=== PATIENT | male | born 1945 | race Caucasian/White ===

== ENCOUNTER 2021-04-18 17:05 | Inpatient (IN) | payer OTHER ==
--- NOTE | 2021-04-29 05:55 | NUR ---
Pt admitted to rm 522A at 2350. Oriented to self. Confused. Admission HX and assessment comnpleted as much as nursing is able to. Pt requires lots of prompting in carrying out tasks. Pt is a direct admit from [facility]. Pt usually lives at home with . Per admission intake report, pt was getting increasing confused, agitated, aggressive with family. Pt unsteady. Fall precautions in place. Pt unable to sign self in, due to inablity to comprehend consent forms. Pt does not have an active DPOA on file. Nursing called Roberta Zabala [phone] twice and was unable to get a hold of . Nursing called Selwyn Mccarty ([phone]) who's listed as his son janie on intake form. Selwyn who's also not legal DPOA voiced that the family was giving consent for treatment and that family was currently pursuing emergency gaurdianship. Consent forms in chart and not signed at this time since son janie does not have legal authority to do so. Pt has urine retention problems and has an order to bladder scan q6 and straight cath if >300ml. This am, bladder scan showed >727ml. After several unsuscessful attempts to void, Pt straight cathed and had 1100ml out. Pt tolerated well. No agitation or aggression noted. Urine was yellow concentrated. Fall precautions remains in place. Nursing to continue to monitor.
[2021-04-29 09:52] VITALS: BP 131/54
--- NOTE | 2021-04-29 10:33 | NUR ---
COMPLIENT WITH TAKING AM MEDICATIONS-ATE BREAKFAST INDEPENDENTLY-REQUIRES FREQUENT QUEING AND PROMPTS TO TOILET,FIND ROOM,ETC. BRIGHT AFFECT,SMILING AND COOPERATIVE WITH REQUESTS AND REDIRECTION. ORIENTED TO NAME ONLY. GAIT IS STEADY WITHOUT ASSISTIVE DEVICES.
--- NOTE | 2021-04-29 18:19 | NUR ---
BLADDER SCAN COMPLETED AT 1200 AND SHOWED LESS THAN 50 CC IN BLADDER. PT HAS BEEN WALKED INTO BATHROOM MULTIPLE TIMES AND EITHER REFUSES TO PULL PANTS DOWN AND SIT ON TOILET OR IS UNABLE TO GO. BLADDER SCAN COMPLETED AT 1800 SHOWS 450 CC'S STRAIGHT CATH COMPLETED PER ORDER -APPROX 400 CC FOUL SMELLING KAMI COLORED URINE DRAINED-PT TOLERATED WELL -CURRENTLY RESTING IN BED
[2021-04-29 18:45] LABS: URINE BILIRUBIN NEGATIVE (Negative); URINE BLOOD NEGATIVE (Negative); URINE CLARITY CLEAR; URINE COLOR YELLOW; URINE GLUCOSE-RANDOM* NEGATIVE (Negative); URINE KETONES TRACE (Negative); URINE LEUKOCYTES-REFLEX TRACE (Negative); URINE NITRITE-REFLEX NEGATIVE (Negative); URINE PROTEIN (DIPSTICK) NEGATIVE (Negative); URINE SPECIFIC GRAVITY 1.015 (1.005-1.035)
[2021-04-29 19:19] VITALS: BP 118/47
--- NOTE | 2021-04-30 02:23 | NUR ---
Assumed pt's care beginning of this pm shift. Pt oriented to self. COnfused. Wandering the hallway and into other peer's rooms. Pt was cooperative with care. Requires several prompts in completing simple tasks, like sitting, taking meds. No agitation or agression noted so far this shift. Pt had pm snacks of vanilla ice cream. Pt's called and was updated. Pt's mentioned to this RN that pt pulled out his neves at [facility]. informed that pt is not voiding on his own yet and is being bladder scanned and straight cathed per order parameter. voiced pt have not had this problem prior to hospitalization. given private code required per unit's policy for communication between or family and unit. also spoke with pt on the phone. Pt straight cathed onetime already this shift. Remains in bed, sleeping.
--- NOTE | 2021-04-30 03:06 | NUR ---
Pt's voiced to nursing that the phone number in pt's face sheet is an old number which is no longer in use. gaver her current cell phone number as [phone].
--- NOTE | 2021-04-30 04:50 | NUR ---
Pt's cellphone number updated on pt's face sheet by admission.
[2021-04-30 05:53] LABS: CHOLESTEROL 101 mg/dL (<200); HDL CHOLESTEROL 44 mg/dL (>40); LDL CHOLESTEROL 48 mg/dL (<100); SERUM ASSESSMENT Clear; TC:HDL 2.3 Ratio (Not establshd); TRIGLYCERIDE 49 mg/dL (<150); VLDL 10 mg/dL (<40)
[2021-04-30 10:23] VITALS: BP 119/64
--- NOTE | 2021-04-30 14:32 | NUR ---
2:30PM - Phone call to , Roberta, ON WORK PHONE NUMBER. Ada provided background information for patient. Ada expressed patient's behaviors becoming worse in the evenings. The patient has taken off out of the home, attempting to walk to [place], [place] where he grew up. The patient will see people who are not there, particularly in the evening. Roberta states the last incident before hospitalization was the patient going outside and banging on the door. When Ada went to get him, the patient josh his arm back as if he were going to hit her. Roberta is hopeful that the patient's medications will be adjusted to help with sleep and the outbursts. The patient's family does have a history of mental health concerns. The patient's siblings (twin brother and older brother) are . The patient was in the [employer] for 25 years. He does not have any VA benefits. 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 The patient graduated from [employer] with a Business degree. The patient is Buddhist. He attended lutheran at [facility] in [place], [place].
--- NOTE | 2021-04-30 17:19 | NUR ---
PATIENT HAS NOT VOIDED AND SEVERAL ATTEMPTS WERE MADE DURING DAY SHIFT TO ENCOURAGE VOIDING IN BATHROOM. SPOKE TO DR. KHALIL ABOUT MULTIPLE TIMES NEEDED TO STRAIGHT CATH. DR. KHALIL ADVISED TO UP DOSAGE OF FLOMAX TO 0.8 AND ORDER CHANGED AND PLACE CONSULT FOR UROLOGY TO ASSESS. DR. BRAUN APPEARED JUST BEFORE DINNER BEING STILL IN BUILDING. ADVISED HIM OF SITUATION AND STATED PATIENT NEED BRYANT PLACEMENT - STATED WOULD PUT IN ORDER FOR TOMORROW. THIS EVENIN STAFF TO TO PVR ON PATIENT PRIOR TO SHIFT CHANGE TO DETERMINE RETENTION AND POSSIBLY ANOTHER STRAIGHT CATH. PATIENT HAS BEEN AGREEABLE - AND STATES NO URGE TO GO.
--- NOTE | 2021-04-30 18:42 | NUR ---
PATIENT PVR DONE WAS 473 RETENTION - OUTPUT WAS OVER 500 WHEN DONE 6:45 - SENT SAMPLE UP TO LAB.
[2021-04-30 19:50] VITALS: BP 104/49
[2021-04-30 20:07] VITALS: BP 104/49
[2021-04-30 21:38] LABS: URINE BILIRUBIN NEGATIVE (Negative); URINE BLOOD 1+ (Negative); URINE CLARITY CLEAR; URINE COLOR YELLOW; URINE GLUCOSE-RANDOM* NEGATIVE (Negative); URINE KETONES NEGATIVE (Negative); URINE LEUKOCYTES-REFLEX NEGATIVE (Negative); URINE NITRITE-REFLEX NEGATIVE (Negative); URINE PROTEIN (DIPSTICK) NEGATIVE (Negative); URINE SPECIFIC GRAVITY 1.015 (1.005-1.035)
[2021-04-30 21:49] LABS: SQUAMOUS 0-3 Few /LPF (0-3)
[2021-04-30 21:50] LABS: CASTS None Seen /LPF (None Seen); CRYSTALS None Seen /LPF (None Seen); URINE RBC 1-2 Rare /HPF (NONE SEEN); URINE WBC-REFLEX 0-5 Rare /HPF (0-5)
--- NOTE | 2021-05-01 00:45 | NUR ---
04/30/21 1900, ambulating ad aspen thru the facility, often entering peers rooms and requiring redirection. pleasant and cooperated with assessment and medication administration, taking meds crushed in pudding with nectar thick fluids. HRRR, Lung CTA but diminished bilat, ABD N x a4Q with patient reporting a BMx1 today, which was verified by staff. Tylenol 650 provided for general pain of 6/10, upon follow up was noted to be sleeping in a garret chair in the day room. Chair alarm utilized while seated in a chair. Denies SI/HI, denies anxiety and depression, denies Hallucinations, however seems confused by the idea. A&Ox1 with considerable confusion noted.
[2021-05-01 04:06] LABS: GLYCOHEMOGLOBIN (HGB A1C) 5.7 % (4.8-5.6)
[2021-05-01 09:08] VITALS: BP 134/62
--- NOTE | 2021-05-01 09:21 | NUR ---
New admit to [facility] for dementia, major neurocognitive disorder. Hx dysphagia. ST [facility] chopped diet with nectar thick liquids and indicated other swallow precautions. Pt able to feed self after setup, intake 100% of meals. No wt hx and BMI is 21. Presents at low nutrition risk
[2021-05-01 20:12] VITALS: BP 129/55
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
[2021-05-02 10:01] VITALS: BP 124/55
[2021-05-02 10:02] VITALS: BP 124/55
--- NOTE | 2021-05-02 16:21 | NUR ---
Roberto was alert and oriented to self only this shift. He presents as pleasant, yet disorganized in his behavior and thought process. He will wander the unit at times but responds appropriately to redirection. Pt had an order for a neves to be placed with a leg bag, Ayesha RN supervisor waterworks placed an order for leg bags this morning and neves was placeed at 1315. Initially attempted to place with a 16F but with baloon inflation the catheter would not stay, therefore a 20F was placed and is secured to pt's left leg. Pt had two large, loose BM's this shift and the second time required a full shower, which pt was compliant with. Pt has also been compliant with neves insertion and has not tried to pull it out since it was placed. Upon insertion of neves pt had 600 mL output of cloudy, concentrated, odorous urine. Pt is difficult to assess due to his current cognitive state but no SI/HI/JONES behavior has been noted this shift. Pt did not appear to be in any physical distress and was observed smiling and laughing frequently throughout the day. Pt remains on high fall precautions but does ambulate independently. Will continue to monitor.
--- NOTE | 2021-05-02 18:45 | NUR ---
This afternoon this RN checked pt's leg bag and pt was noted to have a large amount of dark red/dinesh urine; 200 mL to be exact. There was bright red blood noted in pt's tubing. This was reported to Dr. Casanova who stated to leave the neves in and page urology to have them see pt tomorrow. Dr. Jaden Wellington was paged and updated on pt. He stated to have pt rest and make sure that it is secured properly. Pt has not been noted to pull on his neves but when pt was sitting on the toilet he continued to try and pull his penis into the toilet to urinate and required frequent education. Pt has had 4 large, loose, BM's total this shift. Will pass on in report to oncoming RN Sanchez.
[2021-05-02 20:05] VITALS: BP 134/53
--- NOTE | 2021-05-03 01:22 | NUR ---
PATIENT ALERT TO PERSON ONLY. HE EXHIBITS DELUSIONAL BEHAVIOR BEHAVIOR STATING THAT HE HAS PAPERS IN HIS OFFICE TO FILE WHILE POINTING IN HIS ROOM. PATIENT IS EXIT SEEKING AND WANDERS THE FLOOR. PATIENT ASKS HOW MUCH HE OWES THIS RN STATING THAT HE KNOWS THAT HIS BROTHER OWES ME MONEY. PATIENT WAS COMPLIANT WITH MEDICATIONS. NOTED THAT PATIENT HAS DARK RED URINE IN HIS BRYANT BAG. AFTER GETTING PATIENT TO LAY DOWN THE CATHETER WAS ASSESSED. THE WAS APPROXIMATELY 200CC OF BLOODY DRAINAGE IN THE BAG. NOTED THAT THERE WAS SOME CLOT FORMATION IN THE MEDIAL PORTION OF THE DRAINAGE TUBING. IRRIGATED CATHETER WITH STERILE WATER AND A PISTON SYRINGE. FLUSHED THE TUBE WITH 100CC. WHEN ATTEMTING TO RECOVER RESIDUAL THE CATHETER WOULD NOT DRAW BACK AFTER APPROXIMATELY 10CC OF RETURN. FLUSHED WITH AN ADDITIONAL 100CC. APPLIED MILD TURBULENCE. WAS ABLE TO SUCCESSFULLY WITHDRAW MULTIPLE CLOTS INTO THE SYRINGE. AT THIS TIME CATHETER IS FLUSHING AND DRAWING BACK AFTER ADDISTIONAL 250CC OF FLUSHING AND WITHDRAWAL. NOTIFIED PROVIDER PREPARATION ROOM MANAGER. WILL CONTINUE TO MONITOR STATUS OF BRYANT UNTIL UROLOGY SEES PATIENT IN THE AM. PATIENT FELL ASLEEP WHILE PERFORMING THE IRRIGATION AND DOES NOT COMPLAIN OF ANY PAIN.
--- NOTE | 2021-05-03 11:56 | NUR ---
This nurse spoke with KRZYSZTOF Olguin, regarding positive Covid PCR 05/03/21. Patient initially positive early January 2021 per family. Patient tested positive while inpatient at [facility] and completed 10 days isolation period. Request made for patient to be tested again 05/04/21. Due to patient requiring increased observation, place patient next to nurses station and avoid close interaction with other patients. Will follow up tomorrow after Covid results received.
[2021-05-03 12:10] LABS: HEMATOCRIT 30.4 % (42.0-52.0); HEMOGLOBIN 10.5 gm/dL (14.0-18.0); MCHC 34.6 g/dL (28.0-37.0); MCV 98.3 fL (80.0-100.0); RBC 3.09 mil/uL (4.50-6.00); RDW 13.6 % (10.5-14.5); WBC 9.5 thou/uL (4.0-11.0)
[2021-05-03 12:29] VITALS: BP 117/49
--- NOTE | 2021-05-03 12:32 | NUR ---
PATIENT HAS BEEN UP, [facility], PATIENT CHOSE NOT TO EAT BREAKFAST, FED TWO PUDDING BY THIS NURSE. PATIENT TOLERATED MORNING MEDICATION WELL, SAME CRUSHED IN PUDDING. BRYANT CATH IN PLACE, DRAINING RED BLOODY URINE, DR. HERMOSILLO, AND DR. SERRATO AWARE, NO NEW ORDERS NOTED AT THIS TIME. PATIENT IS SITTED BY [facility] STATION FOR CLOSE OBSERVATION DUE TO POSITIVE COVID RESULT. LCTA, RESP EVEN/UNLABORED, NO SOA/CYANOSIS NOTED. PATIENT IS ALERT, CONFUSED, RAMBLES, NOT ABLE TO APPROPRIATELY RESPOND TO ASSESSMENT QUESTIONS DUE TO COGNITIVE IMPAIREMENT. RECENT VITAL SIGNS FOLLOWS T96.6, P 63, BP 117/49, 20, 02 SAT 97%. NO SIGN OF ACUTE DISTRESS NOTED AT THIS TIME, WILL MONITOR FOR SAFETY.
[2021-05-03 13:55] VITALS: BP 128/56
[2021-05-03] MEDS ORDERED: LIPITOR40 MG PO (15:31)
[2021-05-03] MEDS ORDERED: FLOMAX0.4 MG PO (15:31)
[2021-05-03] MEDS ORDERED: FISH OIL 1,001000 M2 PO (15:32)
[2021-05-03] MEDS ORDERED: NORVASC5 MG PO (15:33)
[2021-05-03] MEDS ORDERED: COZAAR100 MG PO (15:34)
[2021-05-03] MEDS ORDERED: RISPERDAL 1 MG T1 MG PO (15:35)
[2021-05-03] MEDS ORDERED: HYDROCHLOROTH12.5 M1 PO (15:36)
[2021-05-03] MEDS ORDERED: DELZICOL400 M1 PO (15:37)
[2021-05-03] MEDS ORDERED: VITAMIN D325 MC2 PO (15:38)
--- NOTE | 2021-05-04 09:18 | D ---
[facility] [place] [address] DISCHARGE SUMMARY Name: CARLYN CABALLERO Room #: 458-P [facility] IN M.R.#: [id number] Admission: 04/28/21 Attend Phys: Jaden Casanova DO Discharge: 05/03/21 Date of : 41 Report #: [id number] THIS REPORT FOR: cc: JAMES RIVAS DO FAM - Family physician unknown Jaden Casanova DO ~ DATE OF SERVICE: 05/03/2021 INFECTIOUS DISEASE PSYCHIATRIC DISCHARGE SUMMARY DATE OF ADMISSION TO GERIATRIC PSYCHIATRY: 04/29/2021 ATTENDING PSYCHIATRIST: Jaden Casanova DO CHAIN MENDER: Roly Avendano MD CONSULTING UROLOGIST: Geoffrey Ward MD DISCHARGE DIAGNOSES: Urinary retention, requiring Esteban catheter placement, repeated episodes of gross hematuria, not ameliorated with high volume syringe flushes; major neurocognitive disorder, 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 Additional medical comorbidities coronary artery disease, hypertension, hyperlipidemia, gastroesophageal reflux disease, history of 3.3 cm abdominal aortic aneurysm and anemia. The patient is discharged to [address] [place] [address]. DISCHARGE MEDICATIONS: Tamsulosin 0.8 mg oral daily for urinary retention, atorvastatin 40 mg oral daily at bedtime for coronary artery disease, fish oil 1000 mg oral daily for supplementation, amlodipine 5 mg oral daily for hypertension, losartan 100 mg oral daily for hypertension and kidney protection, risperidone 1.5 mg oral twice daily for impulse control and psychosis, hydrochlorothiazide 25 mg oral daily for hypertension, mesalamine 2400 mg oral daily for ulcerative colitis and vitamin D3 1000 international units oral daily for supplementation. The patient has a regular diet. Recommend physical therapy. DISCHARGE LABORATORY DATA: On 05/03; H and H 7.5 and 30.4, white count 9.5, platelet count 136. Most recent labs noted at [facility] had a hemoglobin of 14.4, hemoglobin A1c 5.7. Lipids were all within normal limits. Urinalysis on 04/30 showed 1+ blood, moderate bacteria. Urine culture grew out Aerococcus urinae. The patient's further medical care will be per the hospitalist, Dr. Ward and he has been requested to be consulted. Myself or Dr. Perea will be happy to consult when he is on . REASON FOR PSYCHIATRIC ADMISSION: On 04/29, a 75-year-old male transferred from [address] [address] DISCHARGE SUMMARY Name: ADACARLYN Dulce Room #: 458-P [facility] IN [facility].#: [id number] Admission: 04/28/21 Attend Phys: Jaden Casanova DO Discharge: 05/03/21 Date of : 41 Report #: [id number] [facility] due to worsening sundowning behavior, cognitive impairment. He had a Esteban in at [facility], which was removed the day of discharge. HOSPITAL COURSE: The patient was admitted to Geriatric Psychiatry Unit. We had fairly good behavioral control. He was not assaultive, self-injurious and participated in the milieu. I started him on risperidone 1 mg t.i.d. changed that to 1.5 mg b.i.d. for convenience. Unfortunately, he developed acute retention with over 800 mL retained at one time. We initially tried a strategy of repeat straight catheterizations as Esteban catheters are relatively contraindicated on the Geriatric Psychiatry Unit due to ligature risk. Given the number of repeated catheterizations, urology was called over this past weekend. Dr. Wellington recommended a Esteban bag catheter. The bag catheter was not available over the weekend. There was an additional 24-hour or so delay. Till this was placed, unfortunately, repeated episodes of gross hematuria 24 or so hours after the placement of the Esteban hanging bag catheter. This morning, I got a hold of Dr. Ward, who is the urologist account liaison hospice, discussed the situation, he stopped by and we both examined the patient. He did multiple 50 mL high volume flushes with persistent amount of blood; therefore, he recommended continuous bladder irrigation, which I agree with. This cannot be done on the Geriatric Psychiatry Unit, so medical discharge was required. PHYSICAL EXAMINATION: VITAL SIGNS: On day of discharge, temperature 36.2, pulse 75, respirations 17, BP 128/56, O2 sat 97%. MUSCULOSKELETAL: Seated in a Beronica chair. Ill, weak appearing. Gait not really tested. MENTAL STATUS EXAMINATION: This is a well-developed, quite ill-appearing male with gross hematuria and has hanging Esteban bag. Attention fair. Concentration limited. Speech slow, soft. Thought process: Linear, limited. Thought content: Relative poverty of thought. The patient was not injurious. Denied SI or HI. Did not appear to be responding to internal stimuli. Memory known to be impaired, not formally tested. Insight and judgment are both quite limited. Fund of knowledge below average. PROGNOSIS: For this patient is guarded. Further management per hospitalist and Urologist. <ELECTRONICALLY SIGNED> By: Jaden Casanova DO 05/04/21917 58 05 Jaden Casanova DO /nt
== END 2021-05-03 18:38 | disposition short-term general hospital (02) | DRG 57 ==
LOC: SBH 17:05 → 4W 05-03 18:30
PROVIDERS: Nurse Practitioner Family; ADMIT Psychiatry & Neurology Psychiatry; ATTEND Psychiatry & Neurology Psychiatry
DX: G30.9 Alzheimer's disease, unspecified (principal); F01.51 Vascular dementia, unspecified severity, with behavioral disturbance; F02.81 Dementia in other diseases classified elsewhere, unspecified severity, with behavioral disturbance; R33.9 Retention of urine, unspecified; R31.0 Gross hematuria; I25.10 Atherosclerotic heart disease of native coronary artery without angina pectoris; D64.9 Anemia, unspecified; K21.9 Gastro-esophageal reflux disease without esophagitis; Z20.822 Contact with and (suspected) exposure to COVID-19; E78.5 Hyperlipidemia, unspecified; Z87.891 Personal history of nicotine dependence; Z82.49 Family history of ischemic heart disease and other diseases of the circulatory system; Z83.6 Family history of other diseases of the respiratory system; Z95.5 Presence of coronary angioplasty implant and graft; I25.2 Old myocardial infarction
CPT/HCPCS: 10880

== ENCOUNTER 2021-04-28 16:23 | Emergency (ER) | payer OTHER ==
[~2021-04-28] VITALS: Ht 177.8 cm; Wt 71.2 kg
[2021-04-28 23:41] VITALS: BP 121/82
== END 2021-04-28 23:42 ==
LOC: ER 16:23
PROVIDERS: Emergency Medicine
DX: F03.91 Unspecified dementia, unspecified severity, with behavioral disturbance (principal)

== ENCOUNTER 2021-05-03 19:12 | Inpatient (IN) | payer OTHER ==
[~2021-05-03 19:12] MED LIST: COZAAR100 MG PO; DELZICOL400 M1 PO; FISH OIL 1,001000 M2 PO; FLOMAX0.4 MG PO; HYDROCHLOROTH12.5 M1 PO; LIPITOR40 MG PO; NORVASC5 MG PO; RISPERDAL 1 MG T1 MG PO; VITAMIN D325 MC2 PO
[2021-05-03 19:15] VITALS: BP 123/62
[2021-05-04 00:52] VITALS: BP 139/61
[2021-05-04 03:35] VITALS: BP 117/58
[2021-05-04 03:35] LABS: HEMATOCRIT 29.9 % (42.0-52.0); HEMOGLOBIN 10.2 gm/dL (14.0-18.0); MCH 33.3 pg (26.0-34.0); RBC 3.05 mil/uL (4.50-6.00); RDW 13.6 % (10.5-14.5); WBC 10.6 thou/uL (4.0-11.0)
--- NOTE | 2021-05-04 03:36 | NUR ---
PT ADMITTED TO AT APPROXIMATELY 1900. HE ARRIVED ACCOMPANIED BY 4W STAFF. PT WAS INITIALLY ADMITTED TO [facility] FOR BEHAVIOR CHANGES AT HOME, THEN SUBSEQUENTLY REQUIRED CONTINUOUS BLADDER IRRIGATION DUE TO HEMATURIA. PT IS ALERT TO SELF, CAN STATE NAME AND BUT DOES NOT RESPOND TO ANY OTHER QUESTIONS APPROPRIATELY. 3-WAY BRYANT INSERTED WITH NS SOLUTION FOR CBI. HEMATURIA PERSISTS AT THIS TIME, THOUGH OUTPUT HAS GONE FROM DARK RED TO RED TO DARK PINK AT THIS TIME. VSS. PT IS IMPULSIVE AND DOES NOT KNOW HIS LIMITATIONS. MUSCLE RIGIDITY NOTED X4 EXTREMITIES. WILL CONTINUE TO OBSERVE FOR CHANGES
[2021-05-04 03:37] LABS: CALCIUM 8.9 mg/dL (8.5-10.1); CREATININE 0.8 mg/dL (0.7-1.3); POTASSIUM 3.5 mmol/L (3.5-5.1)
[2021-05-04 08:18] VITALS: BP 117/55
[2021-05-04 10:08] LABS: URINE BLOOD 3+ (Negative); URINE CLARITY CLOUDY; URINE COLOR RED; URINE GLUCOSE-RANDOM* TRACE (Negative); URINE KETONES NEGATIVE (Negative); URINE LEUKOCYTES 2+ (Negative); URINE NITRITE POSITIVE (Negative); URINE PROTEIN (DIPSTICK) 2+ (Negative)
[2021-05-04 10:16] LABS: ICTOTEST (BILI CONFIRMATORY) Negative (Negative); URINE BILIRUBIN NEGATIVE (Negative)
[2021-05-04 11:40] LABS: CASTS None Seen /LPF (None Seen); CRYSTALS None Seen /LPF (None Seen); SQUAMOUS None Seen /LPF (0-3); URINE RBC >20 Many /HPF (NONE SEEN)
[2021-05-04 11:41] LABS: BACTERIA 1-9 Few /HPF (None Seen)
[2021-05-04 11:44] LABS: URINE WBC 6-15 Few /HPF (NONE SEEN)
[2021-05-04 15:23] VITALS: BP 146/71
--- NOTE | 2021-05-04 15:43 | NUR ---
assumed care of pt at 0700. sleeping throughout morning. after lunch patient became agitated and beligerent to staff while doctor in room, grabbing staff and making attempts to pull at neves and not letting go. pt is very confused and not able to be redirected or distracted. restraints applied and antipsychotics given. CBI in process - red/pink tinged urine. family updated by phone of said updates. wcm.
--- NOTE | 2021-05-04 18:06 | NUR ---
pt now calmer after haldol IV. restraints removed. pt moved closer to nursing station for closer monitoring. instructed by urologist to clamp CBI due to clearing up of urine. rayam.
[2021-05-04 20:46] VITALS: BP 124/73
--- NOTE | 2021-05-05 03:54 | NUR ---
PT IS ORIENTED TO SELF ONLY WITH CONFUSION NOTED, DOES NOT ANSWER QUESTIONS APPROPRIATELY. PT IS EASILY AGITATED AND COMBATIVE WITH CARES. CONTINUES TO PULL AT BRYANT CATHETER, CARDIAC LEADS, AND IV SITE. PRN LORAZEPAM AND HALDOL EACH GIVEN X1 WITH GOOD EFFECT. CONTINUOUS BLADDER IRRIGATION PUT ON HOLD PER UROLOGY YESTERDAY; NEAR BEGINNING OF SHIFT, BRYANT NOTED WITH DARK PINK/RED DRAINAGE AGAIN. RESTARTED CBI UNTIL URINE RETURNED CLEAR, THEN PLACED BACK ON HOLD. WILL CONTINUE TO OBSERVE FOR CHANGES.
[2021-05-05 07:16] VITALS: BP 117/64
[2021-05-05 08:08] LABS: HEMATOCRIT 31.8 % (42.0-52.0); HEMOGLOBIN 10.7 gm/dL (14.0-18.0); MCH 33.4 pg (26.0-34.0); MCHC 33.5 g/dL (28.0-37.0); MCV 99.8 fL (80.0-100.0); RBC 3.19 mil/uL (4.50-6.00); RDW 13.8 % (10.5-14.5); WBC 7.5 thou/uL (4.0-11.0)
[2021-05-05 08:21] LABS: CALCIUM 8.9 mg/dL (8.5-10.1); CREATININE 0.7 mg/dL (0.7-1.3)
[2021-05-05 08:27] LABS: POTASSIUM 2.9 mmol/L (3.5-5.1)
--- NOTE | 2021-05-05 14:45 | NUR ---
INITIAL ASSESSMENT: Received consult. MARINA reviewed chart and spoke with nursing and attending physician. Pt is out of Enhanced Isolation. Pt has a neves catheter in place, which will need to stay in place, at this time. Pt was transferred to from [facility] due to having positive COVID test on 05/03. Pt had negative COVID PCR test on 05/04. Pt has received the Moderna COVID vaccination. MARINA discussed case with psychiatrist, Dr. Casanova. Pt is unable to return to [facility] unit with neves catheter in place. MARINA and Dr. Casanova spoke with pt's , Roberta, and son-in-law, Selwyn, via phone to discuss plan of care. Pt was living at home with his prior to admission to [facility]. Pt was at [facility] for 3 weeks prior to admission to [facility] unit. Pt with hx of dementia. Pt's family is touring [facility] this afternoon. Pt's family is aware of need for possible placement in a memory care/LTC facility. Discussion regarding the differences in levels of care and the financial obligations. Pt will either need placement or 24 hour care at home. Pt's family to discuss options over the weekend. Therapy evals have been ordered. Contact info for MARINA provided to pt's son-in-law. MARINA updated pt's nurse and attending physician. MARINA is following to assist as needed with discharge planning.
[2021-05-05 19:40] VITALS: BP 119/66
[2021-05-06 05:30] VITALS: BP 117/64
[2021-05-06 05:58] LABS: CALCIUM 8.9 mg/dL (8.5-10.1); CREATININE 0.7 mg/dL (0.7-1.3); POTASSIUM 3.6 mmol/L (3.5-5.1)
--- NOTE | 2021-05-06 06:39 | NUR ---
PT IS NOT PROGRESSING TOWARD GOALS. REMAINS PROFOUNDLY CONFUSED, RESTLESS, AGITATED, AND COMBATIVE WITH CARES. FREQUENTLY PULLING AT IV/ECG/BRYANT LINES, REQUIRING PRN MEDICATION FOR AGITATION X1. HE RESPONDS TO HIS NAME, BUT DOES NOT COMMUNICATE ANY COHERENT WORDS OR THOUGHTS. CONTINUOUS BLADDER IRRIGATION ON HOLD. URINE IN FOLE BAG IS TEA COLORED. MINIMAL URINARY OUTPUT NOTED THIS SHIFT. BRYANT FLUSHED WITH 120CC NORMAL SALINE WITH SEVERAL MODERATE CLOTS OUT. TOTAL OF ABOUT 350CC URINARY OUTPUT NOTED. PROVIDER TRANSPORT ENGINEER NOTIFIED OF DECREASED UO, NO NEW ORDERS RECEIVED AT THIS TIME. WILL CONTINUE TO OBSERVE FOR CHANGES
[2021-05-06 07:05] VITALS: BP 117/60
[2021-05-06 11:05] VITALS: BP 133/68
[2021-05-06 16:05] VITALS: BP 122/45
--- NOTE | 2021-05-06 18:22 | NUR ---
PT IS VERY MUCH A HANDFULL. TRYING TO GET OUT OF BED, PULLING OFF TELE AND CATH. REDIRECTING AND GIVING PRN TO HELP. ZERO APPETITE, PT WILL EAT ABOUT TWO BITES. BED ALARM IS A MUST. BRYANT TO DD WITH 400ML OUT OF DARK KAMI.
[2021-05-06 20:47] VITALS: BP 158/71
--- NOTE | 2021-05-07 03:21 | NUR ---
PT IS A/O X1 AND IS CURRENTLY ON BEDREST. CAN BE IMPULSIVE AT TIMES PULLING AT EQUIPMENT. BRYANT IN PLACE DRAINING TEA COLORED URINE. NO BM THIS SHIFT. MEDICATIONS GIVEN PER MAR CRUSHED IN APPLE SAUCE. SPOKE WITH AND GAVE UPDATE ON PT CURRENT STATUS. FALL PRECUAUTIONS IN PLACE, CALL LIGHT IS WITHIN REACH.
[2021-05-07 03:35] VITALS: BP 118/40
[2021-05-07 07:13] VITALS: BP 138/64
[2021-05-07 15:13] VITALS: BP 139/66
--- NOTE | 2021-05-07 17:03 | NUR ---
ASSUMED PATIENT CARE AT 0700. AWAKE. IMPLUSIVE AND RESTLESS. ASSISTED WITH EACH MEALS. BED AELEM ON. POOR APPATITE. NOT TOWARDS POC GOALS.
[2021-05-07 19:40] VITALS: BP 117/60
--- NOTE | 2021-05-08 03:12 | NUR ---
PT IS A/O X1, ON BEDREST AND IMPULSIVE WITH PULLING AT EQUIPMENT AND TRYING TO GET OUT OUT BED. PRN ANXIETY MEDICATION GIVEN DIRECTED. BRYANT CATHETER IN PLACE DRAINING DARK YELLOW URINE WITH NO SIGNS OF BLOOD. MEDICATIONS GIVEN CRUSHED IN PUDDING. NECTAR THICK LIQUIDS PROVIDED. MOUTH CARE GIVEN. FALL PRECAUTIONS IN PLACE, CALL LIGHT IS WITHIN REACH. PT IN ROOM NEAR NURSES STATION WITH FREQUENT CHECKS.
[2021-05-08 04:35] VITALS: BP 112/55
[2021-05-08 07:15] VITALS: BP 146/59
--- NOTE | 2021-05-08 13:39 | NUR ---
MARINA reviewed chart and spoke with nursing and attending physician. Pt is slowly progressing towards goals for discharge. Pt with periods of agitation at nighttime. MARINA spoke with pt's son-in-law, Selwyn, via phone. Update provided. Family requests referrals to be sent to [facility], [facility] and [facility]. MARINA faxed referrals to the three facilities. MARINA spoke with Bethany at [facility]. Voice message left for Vernell in marketing at [facility]. MARINA spoke with Arcelia in admissions at [facility], who states she will review the info. Pt's family has toured the three facilities. Awaiting input from facilities at this time. MARINA is following to assist as needed with discharge planning.
[2021-05-08 15:40] VITALS: BP 89/48
--- NOTE | 2021-05-08 18:17 | NUR ---
PT A/O X 0. PT NOT IMPULSIVE OR COMBATIVE TODAY DUE TO SLEEPING MOST OF DAY. PT ATE MOST OF LUNCH, BUT DRINKING VERY LITTLE. SPOKE WITH ALEXANDRIA AND DAUGHTER RANJIT TODAY AND UPDATED. URINE DARK KAMI. WILL CONTINUE TO MONITOR.
[2021-05-08 19:11] VITALS: BP 126/65
--- NOTE | 2021-05-08 20:04 | NUR ---
PT RESTING IN BED, INTERMITTENT AWAKENING WITH NON SENSICAL GROANS, AND THRASHING OF BUE AND BLE. BED ALARM ON. HEART DISTANT, LUNGS DIMINISHED, PALE SKIN TONE, COOL TO THE TOUCH.
--- NOTE | 2021-05-08 21:11 | NUR ---
PT REPEATEDLY ATTEMPTING TO GET OOB. PT NOT ABLE TO BE DISTRACTED, REDIRECTED OR COMFORTED. WARM BLANKETS, TV, LIGHTS ON AND OFF. STAFF SITTING AT BEDSIDE. PRNS FOR AGITATION AND ANXIETY PROVIDED. PT THEN COMPLIANT WITH MEDS IN APPLESAUCE. PT RETURNED TO WATCHING TV AND STAFF IN HALLWAY. PTS CALLED FOR UPDATE. BED ALARM ON.
[2021-05-09 05:20] VITALS: BP 104/54
[2021-05-09 07:11] VITALS: BP 110/58
--- NOTE | 2021-05-09 08:54 | NUR ---
Assess for length of stay. Pt initially admit to [facility] for dementia with behavior disturbance. Developed urinary retention and also tested + for COVID so admitted to acute unit. PO intake has since decreased and averaging 24% over past [address] following for dyspagia. Per review of Provider documentation, possible hospice consideration if no improvement. Will add trial of magic cups and follow for plan of care
--- NOTE | 2021-05-09 11:33 | NUR ---
RESUMED PT CARE THIS AM. PT A/O X 2 THIS MORNING. PT MORE ALERT THAN YESTERDAY FOR THIS RN. PT SPOKE COMPLETE SENTENCES WITH THIS RN, AND HAD A COHERENT CONVERSATION WITH IN AM.
--- NOTE | 2021-05-09 11:56 | NUR ---
MARINA reviewed chart and spoke with nursing and attending physician. Pt has orders to transfer to med/surg when a bed is available. MARINA received call from Carli at [facility], who states that they would like to have their director for beauty school, Danae, come to do an onsite evaluation at 1430 today. Pt's family have made a deposit on an apt at [facility]. MARINA spoke with pt's son-in-law, Selwyn, via phone to provide update. Selwyn states that they chose [facility] due to location. MARINA had received a message stating that pt's dtr, Sneha, had requested a call today from MARINA regarding discharge plan. Selwyn states that he or pt's will call Sneha to provide an update, as she has not been involved in his care. MARINA left voice messages for Arcelia at [facility] and Arcelia at [facility] to follow up on SNF referrals as back up options if needed. MARINA updated pt's nurse and attending physician. MARINA also notified editor house organ of pt having onsite eval/visitor while on 3W. MARINA is following to assist as needed with discharge planning.
[2021-05-09 15:32] VITALS: BP 132/66
--- NOTE | 2021-05-09 18:43 | NUR ---
PT A/O X 1-2. PT ALERT THIS AM, SPEAKING COHERENT SENTENCES. SPOKE WITH FAMILY ON PHONE AND SPEAKING APPROPRIATELY. PT SLEEPING MOST OF DAY. PT STARTED TO GET AGITATED AND START TO PULL AT MEDICAL EQUIPMENT AND TRYING TO GET OUT OF BED THIS AFTERNOON. PT SUPPOSED TO HAVE [place] ([facility]) EVALUATION TODAY BUT TOLD BY FACILITY HE HAS TO BE MOVED TO NON COVID UNIT BEFORE EVAL. PT TO TRANSFER TO THIS EVENING. URINE TEA COLORED. WILL CONTINUE TO MONITOR.
--- NOTE | 2021-05-09 19:46 | NUR ---
Pt alert opens eyes spontaneously. He is nonverbal with incomprehensible sounds. Called report to 4 south. Lungs sound diminished and unlabored on ra. Will sent to 4 south.
--- NOTE | 2021-05-09 21:36 | NUR ---
PT TRANSFERRED TO 443 IN STABLE CONDITION WITH ALL HIS BELONGINGS.
--- NOTE | 2021-05-10 04:15 | NUR ---
Pt. restless most of the night and unable to communicate due to altered mental status. Does not appear ti be in any pain. He is currently resting quietly in the bed. Bed alarm is on.
[2021-05-10 07:00] VITALS: BP 111/57
--- NOTE | 2021-05-10 09:35 | NUR ---
MARINA reviewed chart. Pt was moved to 4S from 3W last evening. MARINA spoke with pt's son-in-law, Selwyn, via phone to provide update. Selwyn states he will call [facility] to notify of new room number. [facility] staff will need to do an onsite eval today to determine level of care needs. MARINA is following to assist as needed with discharge planning.
[2021-05-10 17:39] VITALS: BP 111/57
--- NOTE | 2021-05-10 18:30 | NUR ---
Assumed pt care from overnight shift this am. Client was in bed lying on his side. Client was disoriented 4x, and presented confused and anxious at this time. Client was assisted with feeding breakfast, and was able to drink 16oz fluids within one hour and eat half of his breakfast with staff assist. Client became increasingly agitated, and started to try to climb out of bed and was unredirectable at this time. Client given prn ativan at this time to help with anxiety. Shortly after, client was given prn haldol to help with agitation, as client continued to escalate and tried to get out of bed and hit staff. Agitation was decreased, and client became calmer. Dr. Avendano consulted about adding bp parameters and possible scheduled anxiety medication to pt chart when doing his rounds. Roberta came to visit at this time. Client was still disoriented, but responded to , trying to hug spouse and starting to talk to . was informed about client status and how he was doing at this time. 's phone number is [phone] and her name is Roberta Zabala. Despite prompting, during lunch time, client refused food, and did not want to drink anything. Hospital socially responsible investment adviser, Esme, called to state that [facility] from [facility] would be coming to evaluate client. Esme informed that client had been given prns earlier in the day. Nurse from jail came to evaluate client around 3pm. She was unable to do evaluation as client was sleeping at this time. Nurse will be here again tomorrow @ 8:30 to do another evaluation and requested no prn medications given in order to do her assessment. was informed of this as well before she left. Daughter Sneha called as well. Her number is [phone]. Given status update about client at this time. Was told above information. Client is currently on urinary catheter. 200 mL have been voided during this shift. Paged Dr. Avendano @[phone] to see if there was need for IV fluids. No response as of the time of this note. Client has taken all medications and tolerated them well. Called Dr. Avendano again at [phone]. Still awaiting response. Passed information along about possible fluids to auto body estimator nurse. No other concerns at this time.
[2021-05-10 20:22] VITALS: BP 139/73
--- NOTE | 2021-05-11 05:10 | NUR ---
Pt. was restless and being impulsive towards the beginning of the shift. He was also trying to pull at his catheter. Ivp ativan given (see emar) with little relief. At HS po ativan given (see emar) with some relief. He did rest at intervals during the night when checked on during frequent rounds. Pt. is confused. Left hand swollen and attempted to elevate it, but patient non-compliant with keeping pillow in place. Bed alarm is on.
[2021-05-11 07:38] VITALS: BP 132/36
--- NOTE | 2021-05-11 11:29 | NUR ---
The [facility] was here for a re-eval this am. Will cont following as needed for dcp.
--- NOTE | 2021-05-11 16:19 | NUR ---
spoke with camila with [facility]. He will need dme before coming and he will requirer allot of assistance so family will have to see if they can afford private pay or not per camila # [phone], shaneka # [phone]. No anticipate dc till have an accepting facility for dc.
[2021-05-11 16:32] VITALS: BP 108/53
[2021-05-11 20:34] VITALS: BP 107/62
[2021-05-12 07:55] VITALS: BP 135/70
[2021-05-12 15:22] VITALS: BP 122/65
--- NOTE | 2021-05-12 18:28 | NUR ---
Pt A & O to self. Pt VS stable. Pt neves d/c'd this shift. pt is impulsive. Pt received medications as ordered and also received PRN medications. Pt is x 1 assist with ADLs and cares. Pt is able to make needs known
[2021-05-12 20:45] VITALS: BP 131/78
--- NOTE | 2021-05-13 02:59 | NUR ---
ASSUMED CARE AT 1915 OF 05/12. PATIENT IS A&O TO SELF ONLY, CONFUSED AND IMPULSIVE, BUT REDIRECTABLE. PER REPORT PATIENT'S BRYANT WAS D/C AROUND 1700, PATIENT IS NOT EXHIBITING ANY SINGS OF DISCOMFORT, BLADDER IS NON-DISTENDED. PATIENT DENIES URGE TO VOID WHEN ASKED. NO VOID YET SINCE BRYANT REMOVAL. AT 0000 BLADDER SCAN PERFORMED STATED 180CC. PRN ORAL ATIVAN ADMINISTERED AT HS, PATIENT HAS BEEN CALM MOST OF THE NIGHT, WITH INTERMITENT IMPULSIVITY AND SETTING OFF BED ALARM. FALL PRECAUTIONS IN PLACE, BED ALARM ON AND FREQUENT OBSERVATION IMPLEMENTED. WILL CONTINUE TO MONITOR.
[2021-05-13 07:56] VITALS: BP 113/66
[2021-05-13 16:44] VITALS: BP 117/67
--- NOTE | 2021-05-13 19:35 | NUR ---
PT REMAINS ORIENTED TO SELF ONLY. NO AGITATED BEHAVIORS NOTED TODAY. WAS UNABLE TO VOID AT ALL TODAY. BLADDER SCAN DONE AT 1625 AND WAS 526. WAS NOTIFIED. ORDER RECEIVED TO PLACE BRYANT CATHETER. THIS WAS DONE WITHOUT INCIDENT PER MARIUM KENNEDY
[2021-05-13 20:45] VITALS: BP 133/68
[2021-05-14 07:00] VITALS: BP 109/45
[2021-05-14 11:22] LABS: HEMATOCRIT 35.1 % (42.0-52.0); HEMOGLOBIN 11.7 gm/dL (14.0-18.0); MCH 32.7 pg (26.0-34.0); MCHC 33.3 g/dL (28.0-37.0); MCV 98.2 fL (80.0-100.0); RBC 3.57 mil/uL (4.50-6.00); RDW 13.6 % (10.5-14.5); WBC 7.4 thou/uL (4.0-11.0)
[2021-05-14 11:48] LABS: ALBUMIN 2.8 g/dL (3.4-5.0); CALCIUM 9.1 mg/dL (8.5-10.1); CREATININE 0.9 mg/dL (0.7-1.3); POTASSIUM 3.5 mmol/L (3.5-5.1); TOTAL BILIRUBIN 1.2 mg/dL (0.2-1.0); TOTAL PROTEIN 6.1 g/dL (6.4-8.2)
[2021-05-14 17:44] VITALS: BP 97/47
--- NOTE | 2021-05-14 18:20 | NUR ---
AT 1715 PT YELLED OUT HELP! HELP! ECDIS N NAVIGATION OPERATOR FOUND PT ON THE FLOOR. PT WAS SITTING ON HIS BOTTOM LEANING AGAINST THE BED. PT HAD PULLED OUT HIS BRYANT. BLOOD WAS ALL OVER PT AND THE FLOOR. VITALS WERE STABLE. NO INJURIES NOTED. PT DENIES PAIN. NO CHANGE IN LOC. AT 1630 ECDIS N NAVIGATION OPERATOR HAD GOTTEN PTS VITALS AND STATED SHE HAD ALARM ON. ALARM WAS NOT ON WHEN STAFF FOUND PT IN THE FLOOR. PHYSICAN AND FAMILY WERE NOTIFIED.
[2021-05-14 20:04] VITALS: BP 92/53
[2021-05-15 05:06] VITALS: BP 117/68
--- NOTE | 2021-05-15 05:45 | NUR ---
notified robert ANDERSON of low bp around 2044. rechecked and was higher, reported to kenan anderson. asssisted pt to drink 2 cups of nectar thick liquid. bed alarm on , call light in reach
[2021-05-15 07:00] VITALS: BP 106/67
--- NOTE | 2021-05-15 11:24 | NUR ---
RN DID RANDOM BLADDER SCAN ON PT. BLADDER SCAN SHOWED >405 ML PRESENT. RN TALKED TO DR CHIU AND HE STATED IS BLADDER SCAN WAS GREATER THAN 300 ML TO STRAIGHT CATH PT. IS AT THE BEDSIDE AND IS VERY COOPERATIVE. RN WILL CONITNUE TO MONITOR AND FOLLOW PLAN OF CARE.
--- NOTE | 2021-05-15 15:47 | NUR ---
son selwyn called x 2 related to his glasses. Cm visited with him, passed on information to nursing supervisior. Selwyn voiced that they are completing the [facility]vin for [facility] and will try get it done fast per selwyn # [phone]. Jaiden provided education that MD are ready to dc to next level of care.
[2021-05-15 19:25] VITALS: BP 149/72
--- NOTE | 2021-05-16 00:50 | NUR ---
ASSUMED CARE OF PT AT 1915 ON 05/15/21. PT IS A&O TO NAME. IS IMPULSIVE. DENIES PAIN. IS STABLE. IS UP WITH WITH MAX ASSIST 2, GB, STAND PIVOT. FALL PRECAUTIONS & HOURLY ROUNDING CONTINUED THIS SHIFT. LABS & VTIALS REVIEWED. SPOUSE CALLED TO CHECK IN ON PT. THIS NURSE SPOKE TO SPOUSE & PROVIDED UPDATE. BRYANT IN PLACE. PT IS NEAR NURSE STATION. PT IS CURRENTLY ASLEEP. CALL LIGHT WITHIN REACH. WILL CONTINUE TO MONITOR.
[2021-05-16 07:26] VITALS: BP 123/62
--- NOTE | 2021-05-16 08:24 | NUR ---
A/O X 1 SELF, DROWSY, MUMBLES RESPONES, ROOM AIR, BEDREST. X2 TRANSFER. RIGHT AC IV SALINE LOCKED WITH TUBI MOTORCYLES FINAL INSPECTOR IN PLACE. [address] REDNESS AROUND PENIS TIP-NEOSPORIN APPILED. CRUSHED MEDS IN APPLESAUCE. NECTAR THICK LIQUIDS. BILATERAL LEG SCDS ON. PUREE DIET. GOES BY "RIVER". TOLD IN REPORT THAT HE IS IMPULSIVE-4 BEDRAILS UP, BED ALARM ON,
--- NOTE | 2021-05-16 09:37 | NUR ---
Followup: remains hospitalized, urinary retention, dementia. ST has signed off and pt will remain on puree diet, nectar liquid and swallow precautions indicated. Requires 100% feed assist, receives nutrition supplements and on KCL, vitamin D, zinc, MVI. No new nutrition interventions at this time
--- NOTE | 2021-05-16 15:08 | NUR ---
ty left message with the terence munroe to call ty back. Need to see where the [facility] is at and when he can dc.
[2021-05-16 15:11] VITALS: BP 94/45
[2021-05-16 20:56] VITALS: BP 154/50
[2021-05-17] VITALS (7 sets, daily range): BP systolic 91–136; BP diastolic 42–61
--- NOTE | 2021-05-17 02:05 | NUR ---
PT CONFUSED AND DISORIENTED, IMPULSIVE. WAS SETTING OFF BED ALARM EVERY FEW MINUTES LAST EVENING. LORAZEPAM GIVEN AT 1956 WITHOUT ANY EFFECT. ARTHUR LUJAN NP NOTIFIED WITH ORDER RECEIVED FOR SEROQUEL. MED GIVEN ORDERED. PT TAKES MEDS CRUSHED IN APPLESAUCE. PT DENIES PAIN OR DISCOMFORT. PT'S TELEMETRY BEEPING WITH HEART RATE IN 40'S. PT IN BED SNORING AND SLEEPING. PT AROUSED BY CHIEF SECURITY OFFICER AND ALARM STOPPED BEEPING. PT DRINKING NECTAR THICK LIQUIDS WITHOUT DIFFICULTY. BED ALARM ON FOR SAFETY. PT SLEEPING ON HOURLY ROUNDS.
--- NOTE | 2021-05-17 10:20 | NUR ---
A/O X 1 SELF. IMPULSIVE, START OF SHIFT HE KEPT TRYING TO GET OUT OF HIS BED, VERY ANXIOUS. ATIVAN 1 MG PO GIVEN. PATIENT IS NOW RESTING IN HIS BED. RIGHT AC IV WITH POTASSIUM INFUSING. 16 FR BRYANT. KAMI URINE NOTED. SR ON TELE. NEOSPORIN APPILED TO PENIS FOR REDNESS. MEDS CRUSHED AND PUT IN APPLESAUCE, PUREE DIET, NECTAR THICK LIQUIDS. FEEDER. ATE 30 % OF BREAKFAST.
[2021-05-17 10:44] LABS: CALCIUM 9.4 mg/dL (8.5-10.1); CREATININE 0.8 mg/dL (0.7-1.3); POTASSIUM 3.6 mmol/L (3.5-5.1)
--- NOTE | 2021-05-17 16:58 | NUR ---
Calls placed to both Danae's cell phone and [facility] main line regarding status of the pt's application for [facility]. Pt's son/dtr here throughout the day. Cm visited with them regarding next steps and trying to confirm acceptance and admission date for the [facility]. All parties hoping pt can go to the [facility] on 05/19. Forms rec'd from the [facility] for physician completion. Will f/u with all parties in the am.
[2021-05-18] VITALS (9 sets, daily range): BP systolic 118–142; BP diastolic 44–79
--- NOTE | 2021-05-18 08:29 | NUR ---
PT ASSESSMENT COMPLETED AND VSS. SAT WNL ON RA EVEN WITH SPOT CHECKS. PT WAS LITERALLY UP ALL NIGHT TRYING TO CLIMB OUT OF BED. A TREMENDOUS SAFETY RISK. PT GETS UP ON HIS KNEES AND LEANS OVER THE SIDERAIL. PROVIDED MUCH EMOTIONAL SUPPORT. PT VERY CONSUFED AND UNABLE TO REMEMBER TO STAY IN BED. PT ATTEMPTING TO PULL ON BRYANT. PT UNDRESSING ALL NIGHT. IN THE ROOM MUCH OF THE NIGHT FOR PT SAFETY. MEDS GIVEN ORDERED. INFORMED DAY RN THAT SOMETHING MAY NEED TO BE DONE TO KEEP PT SAFE AND HELP PT SLEEP SINCE HE DID NOT SLEEP ALL NIGHT. BARRIER CREAM APPLIED TO RED SACRAL AREA. CALLED LATE AT NIGHT TO CHECK ON PT STATUS. STATED THAT THEIR CHILDREN WERE HERE FROM OUT OF TOWN AND WERE ALARMED AT HOW MUCH HE HAD CHANGED. I WAS TOLD IN REPORT THAT THEY WERE ACTUALLY UPSET WITH PT CARE. PROVIDED MUCH EMOTIONAL SUPPORT TO . REASSURED THAT PT VITAL SIGNS AND OXYGEN LEVEL WERE WNL AT HS. AND THAT HE WAS CONFUSED AND TRYING TO CLIMB OUT OF BED. SHE STATED THAT IT IS SO HARD FOR HER. SHE SAID THAT HER CLIMBS OUT OF BED ALL NIGHT LONG AND DOES NOT SLEEP. AND THAT SHE IS OVERWHELMED.
--- NOTE | 2021-05-18 12:51 | NUR ---
ASSUMED PT CARE THIS AM. PT FAMILY WAS AT THE BEDSIDE AND VOICED CONCERNED REGARDING PT SITUATION. INFORMED HOSPITALIST. PT HAS BEEN SLEEPING BUT AROUSABLE. ADJUSTED BRYANT CATH THIS AM. PT HAS IV SITE ON RFA SALINE LOCKED. PER HOSPITALIST ORDERED SITTER IF PT IS IMPULSIVE. PT IS ON ROOM AIR. WILL CONTINUE TO MONITOR PT. FOLLOW POC.
--- NOTE | 2021-05-18 13:09 | NUR ---
Daughter stopped by dietitian office yesterday evening and asking what can be done about pt not eating and losing wt. Conversation today with physician, RN and this RD-physician does not want to start any TPN or IV nutrition due to pts dementia. Goal will be to work on improving alertness, have possible sitter. Pt remains no code status.
--- NOTE | 2021-05-18 17:27 | NUR ---
anticipate dc to [facility] when able and dme set up. rx for wheel chair and hospital sent to [facility] to see if insurance will cover these dme. Call [facility] to see if can accept if he is ready to dc # [phone], fax # [phone]. If DME is not ready then he will remain here till dme has arrived at the [facility].
[2021-05-19 06:59] VITALS: BP 116/56
[2021-05-19 09:00] VITALS: BP 116/56
[2021-05-19] MEDS ORDERED: CARDURA4 MG PO (10:02)
== END 2021-05-19 11:18 | DRG 698 ==
LOC: 3W 19:12 → 4S 05-09 21:31
PROVIDERS: Hospitalist; Nurse Practitioner Family; ADMIT Internal Medicine; ATTEND Internal Medicine
PROC: 0T9B70Z Drainage of Bladder with Drainage Device, Via Natural or Artificial Opening (ICD-10-PCS; principal; 2021-05-04)
DX: S37.39XA Other injury of urethra, initial encounter (principal); U07.1 COVID-19; D62 Acute posthemorrhagic anemia; F03.91 Unspecified dementia, unspecified severity, with behavioral disturbance; F05 Delirium due to known physiological condition; F01.51 Vascular dementia, unspecified severity, with behavioral disturbance; E87.0 Hyperosmolality and hypernatremia; R31.9 Hematuria, unspecified; I25.10 Atherosclerotic heart disease of native coronary artery without angina pectoris; R33.8 Other retention of urine; E78.5 Hyperlipidemia, unspecified; K21.9 Gastro-esophageal reflux disease without esophagitis; Z95.5 Presence of coronary angioplasty implant and graft; Z28.21 Immunization not carried out because of patient refusal; I25.2 Old myocardial infarction; X58.XXXA Exposure to other specified factors, initial encounter; Y93.89 Activity, other specified; Y92.89 Other specified places as the place of occurrence of the external cause; Y99.8 Other external cause status
CPT/HCPCS: 10195; 10779; 10879